=== PATIENT | male | born 1985 | race African-American/Black ===

== ENCOUNTER 2024-09-10 14:09 | Emergency (ER) | payer OTHER, SELFPAY ==
[2024-09-10 14:12] VITALS: BP 167/110; PULSE 80; RESP 16; TEMP 36.2; O2SAT 97; BMI 36.2
--- NOTE | 2024-09-10 14:19 | DI.US.S_ITS ---
PROCEDURE: US SCROTUM INDICATIONS: Left testicle pain TECHNIQUE: Real-time scanning was performed of the scrotum and testicles, with image documentation. Color and pulse Doppler interrogation was performed of both testicles. COMPARISON: None. FINDINGS: Right: Testicle is normal in size at 4.3 x 1.9 x 2.6 cm, and homogenous in echotexture. Epididymis is normal in overall size and morphology with a 5 mm epididymal head cyst. No hydrocele or varicoceles. Overlying scrotal skin is normal in thickness. Left: Testicle is normal in size at 3.9 x 1.9 x 3.0 cm, and homogeneous in echotexture. Epididymis is normal in overall size and morphology. There is a varicocele. No hydrocele. Overlying scrotal skin is normal in thickness. Doppler: Color and pulse Doppler demonstrate normal and symmetric arterial flow in both testicles. Venous flow was not evaluated. IMPRESSION: 1. Left varicocele. 2. Testicular microlithiasis. If there is no family history of germ cell tumor sonographic surveillance is unnecessary and monthly testicular self-examination is recommended. 3. Otherwise normal scrotal ultrasound without evidence of torsion. Dictated by: Aidee Govea M.D. on 09/10/2024 at 14:18 Approved by: Aidee Govea M.D. on 09/10/2024 at 14:24
--- NOTE | 2024-09-10 15:34 | ED_ITS ---
HPI - Male Genitourinary <Lety Fang PA-C - Last Filed: 09/10/24 20:44> General Chief complaint: Urogenital-Male Stated complaint: groin px Time Seen by Provider: 09/10/24 15:17 Source: patient Mode of arrival: Ambulatory History of Present Illness HPI Narrative: 38-year-old male presents with concern for left testicular change present for weeks after he had a kidney stone pass. Patient states he has had multiple kidney stones in the past and he passed a kidney stone awhile back but since that time he has been noting that his left testicle feels like it was a little strange, specifically if he wears his boxer briefs up to snug there was an abnormal sensation or feeling like his left testicle is larger than his right. He states it really has not been painful. He has not noted any firm masses the re but states that these symptoms are new for him and wanted further evaluation. He feels his symptoms of the kidney stone have resolve completely. And denies any dysuria, pelvic pain, testicular pain, and states he has otherwise been in his usual state of health. Notes kidney stones have reduced since he stopped drinking sweet tea. He is here from [place] working at the [employer] locally and does not have a local PCP. He has no concern for sexually transmitted infections. Related Data Allergies Allergy/AdvReac Type Severity Reaction Status Date / Time No Known Drug Allergies Allergy Verified 09/10/24 14:12 Review of Systems <Lety Fang PA-C - Last Filed: 09/10/24 20:44> Review of Systems Narrative: See HPI Patient History <Lety Fang PA-C - Last Filed: 09/10/24 20:44> Social History Smoking Status: Never smoker Smoking Status: Never smoker Exam <Lety Fang PA-C - Last Filed: 09/10/24 20:44> Narrative Exam Narrative: GENERAL: [38] year old patient appears stated age. Well-developed patient, well- appearing in no apparent distress. HEAD: Atraumatic. Normocephalic. EYES: Pupils equal round and reactive. Extraocular motions intact. No scleral icterus. No injection or drainage. ENT: Nose without bleeding, purulent drainage. Airway patent. NECK: Trachea midline. Non tender CARDIOVASCULAR: Regular rate and rhythm without murmurs, gallops, or rubs. RESPIRATORY: Clear to auscultation. Breath sounds equal bilaterally. No wheezes, rales, or rhonchi. GASTROINTESTINAL: Abdomen nondistended. : Deferred per patient request EXTREMITIES: No edema or joint tenderness. BACK: No flank tenderness. NEURO: AOx3. SKIN: No rash or erythema of visible areas Initial Vital Signs Initial Vital Signs: Vital Signs Temperature 97.1 F L 09/10/24 14:12 Pulse Rate 80 09/10/24 14:12 Respiratory Rate 16 09/10/24 14:12 Blood Pressure 167/110 H 09/10/24 14:12 Pulse Oximetry 97 09/10/24 14:12 Oxygen Delivery Method Room Air 09/10/24 14:12 <Lori Perez DO - Last Filed: 09/26/24 04:20> Initial Vital Signs Initial Vital Signs: Vital Signs Temperature 97.1 F L 09/10/24 14:12 Pulse Rate 80 09/10/24 14:12 Respiratory Rate 16 09/10/24 14:12 Blood Pressure 167/110 H 09/10/24 14:12 Pulse Oximetry 97 09/10/24 14:12 Oxygen Delivery Method Room Air 09/10/24 14:12 Course <Lety Fang PA-C - Last Filed: 09/10/24 20:44> Orders Ordered: ED Orders 09/10/24 14:19 US scrotum Stat Vital Signs Vital signs: Vital Signs - 8 hr 09/10/24 14:12 09/10/24 17:05 Temperature 97.1 F L 98.2 F Pulse Rate 80 63 Respiratory Rate 16 16 Blood Pressure 167/110 H 153/105 H Pulse Oximetry 97 99 Oxygen Delivery Method Room Air Room Air <DO Kory Dinero Last Filed: 09/26/24 04:20> Orders Ordered: ED Orders 09/10/24 14:19 US scrotum Stat Vital Signs Vital signs: Vital Signs - 8 hr 09/10/24 14:12 09/10/24 17:05 Temperature 97.1 F L 98.2 F Pulse Rate 80 63 Respiratory Rate 16 16 Blood Pressure 167/110 H 153/105 H Pulse Oximetry 97 99 Oxygen Delivery Method Room Air Room Air MDM - Male Genitourinary <Lety Fang PA-C - Last Filed: 09/10/24 20:44> Differential Diagnosis Differential diagnosis: Likely urinary tract infection, urethritis, epididymitis, inguinal hernia and other (Varicocele, hydrocele) Medical Records Attestation: I reviewed the patient's medical records. Lab Data Attestation: I reviewed the patient's lab results. Labs: Urine Dip Bedside Urine Glucose Negative Bedside Urine Bilirubin - Negative Bedside Urine Ketone - Negative Urine Specific [place] 1.015 Bedside Urine Occult Blood - Negative Bedside Urine pH 6.0 Bedside Urine Protein - Negative Bedside Urine Urobilinogen - Negative Bedside Urine Nitrite - Negative Bedside Urine Leukocytes - Negative Esterase Imaging Data US scrotum: My Impression: Agree with Radiology interpretation Radiologist's Impression: [address] [address] Ultrasound Report Signed Patient: Selene Cottrell MR#: [id number] : 1985 Acct:[id number] Age/Sex: 38 / M Date of Service: 09/10/24 Loc: ED Accession Number: [id number] Procedure: US scrotum Ordering Provider: Lori Perez D.O. PROCEDURE: US SCROTUM INDICATIONS: Left testicle pain TECHNIQUE: Real-time scanning was performed of the scrotum and testicles, with image documentation. Color and pulse Doppler interrogation was performed of both testicles. COMPARISON: None. FINDINGS: Right: Testicle is normal in size at 4.3 x 1.9 x 2.6 cm, and homogenous in echotexture. Epididymis is normal in overall size and morphology with a 5 mm epididymal head cyst. No hydrocele or varicoceles. Overlying scrotal skin is normal in thickness. Left: Testicle is normal in size at 3.9 x 1.9 x 3.0 cm, and homogeneous in echotexture. Epididymis is normal in overall size and morphology. There is a varicocele. No hydrocele. Overlying scrotal skin is normal in thickness. Doppler: Color and pulse Doppler demonstrate normal and symmetric arterial flow in both testicles. Venous flow was not evaluated. IMPRESSION: 1. Left varicocele. 2. Testicular microlithiasis. If there is no family history of germ cell tumor sonographic surveillance is unnecessary and monthly testicular self-examination is recommended. 3. Otherwise normal scrotal ultrasound without evidence of torsion. Dictated by: Aidee Govea M.D. on 09/10/2024 at 14:18 Approved by: Aidee Govea M.D. on 09/10/2024 at 14:24 [facility] Narrative Medical decision making narrative: 38-year-old male presents with concern for changes to his left testicle present for weeks after passing a kidney stone. Urine dip is unremarkable today. Patient prefers no exam. Ultrasound was ordered from triage and returned showing a varicocele on the left which is consistent with the patient's description of symptoms. Ultrasound also radiology noted microcalcifications present in the tissue. Discussed this with the patient and advised him to perform regular testicular exams monthly, also talk to his PCP about this consider a repeat ultrasound if he has any other concerns or family history, or changes to his testicles. Patient currently has no symptoms of ureterolithiasis. Return precautions provided, follow-up plan discussed, all questions answered. <Lori Perez, - Last Filed: 09/26/24 04:20> Lab Data Labs: Urine Dip Bedside Urine Glucose Negative Bedside Urine Bilirubin - Negative Bedside Urine Ketone - Negative Urine Specific [place] 1.015 Bedside Urine Occult Blood - Negative Bedside Urine pH 6.0 Bedside Urine Protein - Negative Bedside Urine Urobilinogen - Negative Bedside Urine Nitrite - Negative Bedside Urine Leukocytes - Negative Esterase Discharge Plan Departure Patient Disposition: Home Clinical Impression: Left varicocele Activity Restrictions/Additional Instructions: *You have been diagnosed with [varicocele, microcalcifications of testicle] *What to do: *Please continue to take your regular medications as directed. [ ] New medication prescriptions sent to your pharmacy: [ ] [ ] New medication written as a paper prescription [x ] No new medications given *Please follow up with your primary care provider in 2-3 days, call for an appointment. Let them know you were seen in the Emergency Department and that we ask that you be seen in follow up. We will electronically transmit a record of today's note if your PCP is in our system. We checked your urine today and also did an ultrasound of your testicles. There was no blood in your urine and no evidence of a urinary tract infection. The ultrasound showed that you have a varicocele which is a pronounced collection of veins in your testicle on the left. This likely explains the abnormal sensation you have been having and the sense that there is a bulge there. If you find it to be continually bothersome or UR having pain associated with this area I do recommend you see urologist for further discussion/recommendations. Otherwise you can follow with your primary care provider. The radiologist did also note you have some microcalcifications present in your testicle. This makes it very important for you to do regular testicular exams monthly on herself to evaluate for any changes that you may note over time. You stated today that you have no known family history of testicular cancer, if you do have this family history then regular ultrasounds may be advised. Otherwise your ultrasound exam had no concerning findings or abnormalities. I hope you feel better soon. *If you do not have a primary care provider please contact the [facility] Resource line at [phone]. They will ask some questions about your medical history and help get you set up with a doctor in the community. *Return to Emergency Department if you should have any new, worsening or concerning symptoms, such as [fever greater than 101 F, shaking chills, worsening pain, persistent vomiting or other bothersome symptoms] Referrals: Miscellaneous,Doctor, [Primary Care Provider] - Stand Alone Forms: Patient Portal/API/Survey ED Sign-out <Lori Perez DO - Last Filed: 09/26/24 04:20> Cosign ED Attending Manjit Attestation: I was immediately available in the department for consultation.
[2024-09-10 17:05] VITALS: BP 153/105; PULSE 63; RESP 16; TEMP 36.8; O2SAT 99
== END 2024-09-10 17:08 | disposition home or self-care (01) ==
PROVIDERS: Emergency Provider Student in an Organized Health Care Education/Training Program
DX: I86.1 Scrotal varices (principal)
CPT/HCPCS: 76870; 81003; 99282; 99283